=== PATIENT | male | born 1965 | race Caucasian/White ===

== ENCOUNTER 2019-04-03 20:37 | Inpatient (IN) | payer MEDICAID ==
[~2019-04-03] VITALS: Ht 167.6 cm; Wt 63.5 kg
[2019-04-03 21:00] VITALS: BP 107/63
--- NOTE | 2019-04-03 21:03 | NUR ---
TO LOBBY A/E BED, AMBULATORY
--- NOTE | 2019-04-03 21:59 | NUR ---
PT AMBULATED W/ STEADY GAIT TO BED 9.
--- NOTE | 2019-04-03 22:05 | NUR ---
PT BIB FRIEND C/O ABD PAIN. PT STATES SUDDEN ONSET OF ABD PAIN X1 WEEK, STATES 7/10 CRAMPING PAIN THROUGH OUT ABD, +TENDERNESS THROUGH OUT. LBM: 04/03/19 WNL, PER PT. PT STATES SMOKED CIGARRETES DAILY, LAST DID HEROIN THIS AFTERNOON. PT ACTING APPROPRIATLY, SPEAKING IN CLEAR AND COMPLETE SENTENCES. PT IN GOWN, IN BED; BED IN LOWER LOCKED POSITION; BEDRAILS UP X1. PENDING ERMD EVAL. PMH: DENIES
--- NOTE | 2019-04-03 22:21 | NUR ---
DR. JOHNSON EVALUATING PATIENT.
[2019-04-03] MEDS ORDERED: diphenhydrAMINE 50 MG/ML VIAL IVP ONE (22:35)
[2019-04-03] MEDS ORDERED: KETOROLAC 30 MG/ML VIAL IVP ONE (22:35)
[2019-04-03] MEDS ORDERED: NACL 0.9% 1,000 ML IV ONE (22:35)
[2019-04-03] MEDS ORDERED: METOCLOPRAMIDE 10 MG/2 ML INJ VIAL IVP ONE (22:35)
--- NOTE | 2019-04-03 23:00 | NUR ---
PT STATES HE CAN NOT GIVE URINE RIGHT NOW, PT INCOURAGED TO TRY.
[2019-04-03 23:13] LABS: BASOPHILS % (AUTO) 0.7 % (0.0-2.0); EOSINOPHILS # (AUTO) 0.1 K/uL (0-0.4); HEMATOCRIT 39.3 % (36-52); HEMOGLOBIN 13.2 g/dL (12.0-18.0); LYMPHOCYTES # (AUTO) 0.5 K/uL (2.0-11.5); LYMPHOCYTES % (AUTO) 11.5 % (20.5-51.1); MEAN CORPUSCULAR HEMOGLOBIN 28 pg (27-31); MEAN CORPUSCULAR HGB CONC 34 g/dL (33-37); MEAN CORPUSCULAR VOLUME 84.1 fL (80-94); MONOCYTES # (AUTO) 0.4 K/uL (0.8-1.0); MONOCYTES % (AUTO) 10.5 % (1.7-9.3); NEUTROPHILS % (AUTO) 74.3 % (42.2-75.2); PLATELET COUNT (AUTO) 136 K/uL (140-450); RED BLOOD CELL COUNT(AUTO) 4.67 MIL/uL (4.20-6.10); RED CELL DISTRIBUTION WIDTH 14.5 % (11.6-13.7)
[2019-04-03 23:23] LABS: ANION GAP 12.7 (8-16); CARBON DIOXIDE 29.1 mmol/L (21-32); CREATININE 0.9 mg/dL (0.7-1.3); POTASSIUM 3.8 mmol/L (3.5-5.1)
[2019-04-03 23:34] LABS: ALBUMIN 3.5 g/dL (3.4-5.0); TOTAL BILIRUBIN 4.3 mg/dL (0.0-1.0)
[2019-04-04] MEDS ORDERED: NACL 0.9% 1,000 ML IV ONE ×2 (00:20→04:10)
[2019-04-04 00:36] LABS: APPEARANCE,URINE HAZY (CLEAR); BILIRUBIN,URINE 3+ (NEGATIVE); BLOOD, URINE NEGATIVE (NEGATIVE); COLOR,URINE BROWN (YELLOW); LEUKOCYTE ESTERASE ,URINE NEGATIVE (NEGATIVE); NITRITE, URINE NEGATIVE (NEGATIVE); PH,URINE 5.5 (5.0-9.0); UGLUCOSE TRACE (NEGATIVE)
[2019-04-04 00:41] LABS: RBC,URINE 0-5 /HPF (0-5); WBC,URINE 0-5 /HPF (0-5)
[2019-04-04 00:42] LABS: HYALINE CASTS, URINE 0-10 /LPF (None Seen)
--- NOTE | 2019-04-04 01:00 | NUR ---
PT TO CT VIA [facility] BY [employer].
--- NOTE | 2019-04-04 01:12 | NUR ---
PT RETURN FROM CT.
--- NOTE | 2019-04-04 01:15 | NUR ---
PT BACK FROM CT, AROUSABLE TO VOICE. PT ACTING APPROPRAITLY, SPEAKING IN CLEAR AND COMPLETE SENTENCES; BREATHING EQUAL AND UNLABORED.
--- NOTE | 2019-04-04 02:29 | NUR ---
PT AWAKE AND ACTING APPROPRIATLY, BREATHING EQUAL AND UNLABORED. SPEAKING IN CLEAR AND COMPLETE SENTENCES.
[2019-04-04] MEDS ORDERED: NACL 0.9% 1,000 ML IV SCH (04:06)
[2019-04-04] MEDS ORDERED: ONDANSETRON 4 MG/2 ML VIAL IVP PRN (04:10)
[2019-04-04] MEDS ORDERED: MORPHINE SULFATE 2 MG/ML SYR IVP PRN (04:10)
[2019-04-04] MEDS ORDERED: LACTULOSE 20 GM/30 ML UDC PO SCH (04:30)
--- NOTE | 2019-04-04 04:45 | NUR ---
Patient will be admitted to care of Dr. Kern. Admited to Med-Surg. Patient went to room 112-B via [facility] by RN, patient acting appropriatly. Belongings list completed. Report to EDWAR Hyman.
[2019-04-04 04:54] LABS: BARBITURATE, URINE NEG. ng/ml (NEG <=200); BENZODIAZEPINE, URINE NEG. ng/mL (NEG <=200); CANNABINOID, URINE NEG. ng/mL (NEG <=50); COCAINE, URINE NEG. ng/mL (NEG <=300); OPIATE, URINE POS. ng/mL (NEG <=2000); PHENCYCLIDINE SCREEN,URINE NEG. ng/mL (NEG <=25)
--- NOTE | 2019-04-04 05:00 | NUR ---
RECEIVED PT FROM ER NURSE. PT CAME IN [facility] AND AMBULATED FROM ER BED TO [facility] BED. RESIDENT AT BEDSIDE. DX TRANSAMINITIS. DENIES PAIN AT THIS TIME. NO SOB OR ANY RESPIRATORY DISTRESS NOTED ON ROOM AIR. IV SITES ON RH 22G, LAC 20G, PATENT, INTACT, ASYMPTOMATIC. PLAN OF CARE REVIEWED AND DISCUSSED, PT UNDERSTAND BY VERBALIZED. ALL SAFETY MEASURE ARE MET. STANDARD PRECAUTION IN PLACE. BED IN LOW POSITION, CALL LIGHT WITHIN REACH. WILL CONTINUE TO MONITOR.
[2019-04-04 05:10] VITALS: BP 111/72
--- NOTE | 2019-04-04 05:26 | NUR ---
GIVEN CEPHULAC DR. ORDERED. PT TOLERATED WELL.
--- NOTE | 2019-04-04 07:25 | NUR ---
ENDORSED PT TO DAY SHIFT NURSE. PT IN STABLE CONDITION.
--- NOTE | 2019-04-04 07:26 | NUR ---
RECEIVED REPORT FROM VISUAL TRAINING AIDE RN. PATIENT IS GETTING ULTRASOUND AT THIS TIME. NO SIGNS OF DISTRESS ON RA. WILL CONTINUE TO MONITOR.
--- NOTE | 2019-04-04 07:35 | NUR ---
PATIENT STATES HE IS GOING TO LEAVE. HE STATES "I AM HUNGRY, I DON'T WANT TO BE POKED OR PRODDED ANY MORE, I JUST WANT TO GO." EDUCATED PATIENT ON PLAN OF CARE AND ASSURED HIM THAT I AM HERE TO HELP HIM AND MEET HIS NEEDS. HE SAYS HE WANTS TO GO. WILL INFORM DOCTOR.
--- NOTE | 2019-04-04 07:40 | NUR ---
BREAKFAST TRAY ARRIVED. PROVIDED TRAY TO PATIENT. PATIENT SAYS HE FEELS BETTER AND WANTS TO LEAVE. EDUCATED PATIENT ON TREATMENT THUS FAR, PATIENT RECEIVED 3L FLUID BOLUS IN ER, EDUCATED PATIENT ON PLAN OF CARE. HE STILL WANTS TO LEAVE. DOCTORS ROUNDING NOW AND ARE AWARE.
--- NOTE | 2019-04-04 07:55 | NUR ---
DOCTORS AT BEDSIDE. EXPLAINED RISKS OF LEAVING AGAINST MEDICAL ADVICE. PATIENT WANTS TO LEAVE ANYWAY. HE SAYS HE FEELS MUCH BETTER. PATIENT SIGNED OUT AMA. REMOVED RIGHT HAND 22 G IV CATHETER TIP INTACT. REMOVED LEFT AC 20 G CATHETER, TIP INTACT. NO SIGNS OF BLEEDING. PATIENT IS ALERT AND ORIENTED AND AMBULATING WITH STEADY GAIT HE EXITED THE HOSPITAL ACCOMPANIED BY HIS GIRLFRIEND.
[2019-04-04] MEDS ORDERED: DOCUSATE SODIUM 100 MG GELCAP PO SCH (09:00)
[2019-04-07 06:12] LABS: HEPATITIS A ANTIBODY IGM Negative (Negative); HEPATITIS B CORE AB TOTAL Positive (Negative); HEPATITIS B SURFACE ANTIBODY Reactive (.); HEPATITIS B SURFACE ANTIGEN Negative (Negative)
== END 2019-04-04 08:00 | disposition left against medical advice (07) ==
LOC: MED 20:37 → MTU 04-04 04:06
PROVIDERS: ADMIT General Practice; ATTEND General Practice
DX: B19.9 Unspecified viral hepatitis without hepatic coma (principal); D69.6 Thrombocytopenia, unspecified; F17.210 Nicotine dependence, cigarettes, uncomplicated; E86.0 Dehydration; K59.00 Constipation, unspecified; D72.819 Decreased white blood cell count, unspecified; F15.10 Other stimulant abuse, uncomplicated; R17 Unspecified jaundice; Z53.21 Procedure and treatment not carried out due to patient leaving prior to being seen by health care provider; Z90.49 Acquired absence of other specified parts of digestive tract
CPT/HCPCS: 36415; 76700; 80053; 80305; 81001; 83690; 85025; 86704; 86706; 86708; 86709; 86803; 87340; 96361; 96374; 96375; 99285; J1200; J1885; J2765; J7030; Q0092; Q9967

== ENCOUNTER 2019-04-06 16:07 | Emergency (ER) | payer MEDICAID ==
[~2019-04-06] VITALS: Ht 167.6 cm; Wt 63.5 kg
[2019-04-06 16:28] VITALS: BP 110/70
--- NOTE | 2019-04-06 16:45 | NUR ---
Note undone in EDM - 04/06/19 at 1825 by [email or web address] 54 Y MALE BIB FAMILY C/O ABD PAIN X1 WEEK. PT REPORTS INTERMITENT SHARP EPIGASTRIC PAIN AT 8/10. ADMITTED ON SATURDAY FOR LIVER PROBLEMS, AND CHECKED OUT AMA ON SATURDAY. LAST USED HEROINE THIS MORNING. +NAUSEA, -VOMITING. DENIES CONSTIPATION OR DIARRHEA. LAST BM TODAY. ABDOMEN SOFT AND ROUND. BOWEL SOUNDS ACTIVE IN ALL 4 QUADRANTS. WAS PT AA0X4. VSS AT THIS TIME. BED IS DOWN, LOCKED, BED RAIL X 1, ERMD TO SEE PT. MEDHX:DRUG USE RX:DENIES
--- NOTE | 2019-04-06 17:31 | NUR ---
PT AMBULATED TO ER BED 08
[2019-04-06 17:43] LABS: HEMATOCRIT 35.6 % (36-52); HEMOGLOBIN 11.6 g/dL (12.0-18.0); MEAN CORPUSCULAR HEMOGLOBIN 28 pg (27-31); MEAN CORPUSCULAR HGB CONC 33 g/dL (33-37); MEAN CORPUSCULAR VOLUME 84.5 fL (80-94); PLATELET COUNT (AUTO) 126 K/uL (140-450); RED BLOOD CELL COUNT(AUTO) 4.22 MIL/uL (4.20-6.10); RED CELL DISTRIBUTION WIDTH 14.9 % (11.6-13.7); WHITE BLOOD COUNT (AUTO) 7.1 K/uL (4.8-10.8)
--- NOTE | 2019-04-06 17:45 | NUR ---
54 Y MALE BIB FAMILY C/O ABD PAIN X1 WEEK. PT REPORTS INTERMITENT SHARP EPIGASTRIC PAIN AT 8/10. ADMITTED ON SATURDAY FOR LIVER PROBLEMS, AND CHECKED OUT AMA ON SATURDAY. LAST USED HEROINE THIS MORNING. +NAUSEA, -VOMITING. DENIES CONSTIPATION OR DIARRHEA. LAST BM TODAY. ABDOMEN SOFT AND ROUND. BOWEL SOUNDS ACTIVE IN ALL 4 QUADRANTS. WAS PT AA0X4. VSS AT THIS TIME. BED IS DOWN, LOCKED, BED RAIL X 1, ERMD TO SEE PT. MEDHX:DRUG USE RX:DENIES
[2019-04-06 17:49] LABS: ANION GAP 11.5 (8-16); CARBON DIOXIDE 26.2 mmol/L (21-32); CREATININE 0.8 mg/dL (0.7-1.3); POTASSIUM 3.7 mmol/L (3.5-5.1); TOTAL BILIRUBIN 1.8 mg/dL (0.0-1.0)
[2019-04-06 17:59] LABS: LYMPHOCYTES % (MANUAL) 68 % (20-46); MONOCYTES % (MANUAL) 2 % (5-12)
[2019-04-06 18:01] LABS: GAMMA GLUTAMYL TRANSFERASE 219 U/L (7-51)
[2019-04-06] MEDS ORDERED: HALOPERIDOL IM 5 MG/ML VIAL IM ONE (18:05)
[2019-04-06] MEDS ORDERED: FAMOTIDINE 20 MG TAB PO ONE (18:05)
[2019-04-06] MEDS ORDERED: diphenhydrAMINE 50 MG/ML VIAL IVP ONE (18:05)
[2019-04-06] MEDS ORDERED: MECLIZINE 25 MG TAB PO ONE (18:05)
[2019-04-06] MEDS ORDERED: ONDANSETRON 4 MG/2 ML VIAL IVP ONE (18:05)
[2019-04-06] MEDS ORDERED: NACL 0.9% 2,000 ML IV SCH (18:05)
[2019-04-06] MEDS ORDERED: DEXAMETHASONE 10 MG/ML VIAL IVP ONE (18:05)
[2019-04-06 18:28] LABS: APPEARANCE,URINE CLEAR (CLEAR); BILIRUBIN,URINE 2+ (NEGATIVE); BLOOD, URINE NEGATIVE (NEGATIVE); COLOR,URINE YELLOW (YELLOW); LEUKOCYTE ESTERASE ,URINE NEGATIVE (NEGATIVE); NITRITE, URINE NEGATIVE (NEGATIVE); UGLUCOSE TRACE (NEGATIVE)
--- NOTE | 2019-04-06 18:55 | NUR ---
VSS AT THIS TIME. PT AA0X4 WHEN WOKEN UP. PT AROUSABLE BY NAME. SLEEPING IN BED. BEDSIDE.
--- NOTE | 2019-04-06 19:12 | NUR ---
ASSUMED CARE OF PT FROM EDWAR PIERRE.
--- NOTE | 2019-04-06 19:30 | NUR ---
PT ABLE TO AMBULATE TO BATHROOM WITHOUT ASSIST. IS ALERT TO NAME, BIRTHDAY, PLACE, AND EVENT.
--- NOTE | 2019-04-06 19:35 | NUR ---
IV removed, catheter intact and site benign. Applied folded 4x4 gauze and tape to stop bleeding.
--- NOTE | 2019-04-06 19:41 | NUR ---
Patient discharged with v/s stable. Written and verbal after care instructions given and explained. Patient alert, oriented and verbalized understanding of instructions. Ambulatory with steady gait. All questions addressed prior to discharge. ID band removed. Patient advised to follow up with PMD. Rx of VITAMIN given. Patient educated on indication of medication including possible reaction and side effects. Opportunity to ask questions provided and answered.
[2019-04-06 19:43] VITALS: BP 114/78
== END 2019-04-06 19:41 | disposition home or self-care (01) ==
LOC: MED 16:07
DX: F11.10 Opioid abuse, uncomplicated (principal); R10.13 Epigastric pain; Z91.19 Patient's noncompliance with other medical treatment and regimen
CPT/HCPCS: 36415; 80053; 81003; 82977; 85025; 85379; 96372; 96374; 96375; 99283; G0482; J1100; J1200; J1630; J2405; J7030; J8597

== ENCOUNTER 2019-07-06 19:27 | Emergency (ER) | payer MEDICAID ==
[~2019-07-06] VITALS: Ht 167.6 cm; Wt 58.1 kg
[2019-07-06 19:43] VITALS: BP 113/81
--- NOTE | 2019-07-06 19:52 | NUR ---
PT AMBULATED TO LOBBY WITH STEADY GAIT. AWAITING AVAILABLE BED.
--- NOTE | 2019-07-06 20:11 | NUR ---
PT AMBULATED TO BED #12.
--- NOTE | 2019-07-06 20:13 | NUR ---
54/M PRESENTED TO ED WITH C/O ABSCESS TO RIGHT SHOULDER. PT ADMITS FROM HEROIN IM INJECTION. THROBBING 7/10 PAIN CONSTANT X2 DAYS AGO. +REDNESS, WARMTH, CHILLS, NAUSEA. NO FEVER, DRAINAGE NOTED. DENIES PAST MED HX. DENIES RX. DENIES ALLERGIES. WILL CONTINUE TO MONITOR.
[2019-07-06] MEDS ORDERED: LIDOCAINE 1% 500 MG/50 ML VIAL INJ SCH (21:15)
--- NOTE | 2019-07-06 21:30 | NUR ---
DR GLOVER PERFORMING I&D
[2019-07-06] MEDS ORDERED: LIDOCAINE MPF 1% - 5 mL VIAL 5 ML ONE (21:31)
[2019-07-06] MEDS ORDERED: IBUPROFEN 600 MG TAB PO ONE (21:35)
[2019-07-06] MEDS ORDERED: CEPHALEXIN 500 MG CAP PO ONE (21:35)
[2019-07-06] MEDS ORDERED: SULFAMETH/TRIMETH DS 800/160MG 1 TAB PO ONE (21:35)
--- NOTE | 2019-07-06 21:48 | NUR ---
APPLIED DRESSING TO RIGHT SHOULDER WITHOUT ANY ISSUES
[2019-07-06 21:54] VITALS: BP 113/81
--- NOTE | 2019-07-06 21:54 | NUR ---
Patient discharged with v/s stable. Written and verbal after care instructions given and explained. Patient alert, oriented and verbalized understanding of instructions. Ambulatory with steady gait. All questions addressed prior to discharge. ID band removed. Patient advised to follow up with PMD. Rx of IBUPROFEN, KEFLEX, BACTRIM given. Patient educated on indication of medication including possible reaction and side effects. Opportunity to ask questions provided and answered.
== END 2019-07-06 21:54 | disposition home or self-care (01) ==
LOC: MED 19:27
DX: L02.413 Cutaneous abscess of right upper limb (principal)
CPT/HCPCS: 10060; 99284; J2001